=== PATIENT | male | born 1940 | race Native Hawaiian/Other Pacific Islander ===

== ENCOUNTER 2017-05-26 05:37 | Day surgery (SDC) | payer MEDICARE ==
[2017-05-21 12:26] VITALS: BMI 21.3
[2017-05-26 06:35] VITALS: O2SAT 100
[2017-05-26] MEDS ORDERED: cefTRIAXone IV 1 gm in Dextros 50 ML IVPB ONE (07:46)
[2017-05-26] MEDS ORDERED: Lidocaine 2% Jelly (Uro-Jet) ONE (07:46)
[2017-05-26] MEDS ORDERED: Iohexol 240 (50 ml) ONE (07:46)
[2017-05-26] MEDS ORDERED: Sodium Chloride 0.9% 250 ML IV ONE ×2 (08:27→09:48)
[2017-05-26] MEDS ORDERED: Propofol 10 mg/ml Inj (20 ML) ONE (08:30)
[2017-05-26] MEDS ORDERED: Lidocaine Hydrochloride 5 ML INJ ONE (08:31)
[2017-05-26] MEDS ORDERED: ePHEDrine 50 mg/ml Inj ONE (08:45)
[2017-05-26] MEDS ORDERED: HYDROmorphone 0.5 mg/0.5 ml ISec IVP PRN (09:54)
--- NOTE | 2017-05-26 10:05 | PCM.SURG1 ---
Surgeon's Initial Post Op Note - Surgeon's Notes Surgeon: Thierry Barrera Oiler And Greaser: none Type of Anesthesia: General LMA Pre-Operative Diagnosis: Urolithiasis Operative Findings: same. L ureteral calculus. L renal calculi Post-Operative Diagnosis: same Operation Performed: cysto, bilat rtg pyelogram. L uretroscopy, laser lithotripsy. stone basketing, stent insertion. L flexible renoscopy, stone basketing. L ureteral stent insertion Specimen/Specimens Removed: urine. stone - ureter, kidney Estimated Blood Loss: EBL {In ML}: 0 Blood Products Given: N/A Date of Surgery/Procedure: 05/26/17 Time of Surgery/Procedure: 10:05
[2017-05-26 10:50] LABS: MEAN CORPUSCULAR HGB CONC 33.1 g/dL (33.0-37.0); MEAN PLATELET VOLUME 6.9 fL (7.2-11.7); RBC 2.16 Mil/uL (4.40-5.90); RED CELL DISTRIBUTION WIDTH 17.4 % (11.5-14.5)
[2017-05-26 10:51] LABS: MEAN CELL VOLUME 111.6 fL (80.0-94.0)
[2017-05-26 11:17] LABS: CALCIUM 7.1 mg/dl (8.6-10.4); URIC ACID 6.7 mg/dL (3.5-8.5)
[2017-05-26 12:24] VITALS: BP 146/53; PULSE 84; RESP 20; TEMP 97.8
[2017-05-26 12:45] LABS: URINE BACTERIA RARE (<OCC); URINE BILIRUBIN NEGATIVE (NEGATIVE); URINE BLOOD 2+ (NEGATIVE); URINE CLARITY Clear (Clear); URINE COLOR Colorless (YELLOW); URINE GLUCOSE (UA) NORMAL (Normal); URINE LEUKOCYTE ESTERASE 2+ Leu/uL (Negative); URINE NITRATE NEGATIVE (NEGATIVE); URINE PROTEIN NEGATIVE (NEGATIVE); URINE UROBILINOGEN NORMAL mg/dL (0.2-1.0)
--- NOTE | 2017-05-26 14:52 | RAD ---
HISTORY: BILAT UROLITHIASIS COMPARISON: No prior. FINDINGS: BOWEL: Normal. No obstruction. No free air. BONES: Multilevel degenerative changes. OTHER FINDINGS: Position of the double J stent catheter(s): Satisfactory IMPRESSION: Satisfactory position of double-J stent catheters bilaterally.
--- NOTE | 2017-05-26 16:36 | RAD ---
PROCEDURE: Intraoperative Fluoroscopy. HISTORY: BILAT UROLITHIASIS FINDINGS: Fluoroscopic assistance was provided for left ureteroscopy. Please fluoroscopic time (continuous mode) utilized during the procedure: 86.4 seconds. Total exam DLP: MGy per meter: 0.583
--- NOTE | 2017-05-28 06:59 | OP ---
PROCEDURE DATE: 05/26/2017 PREOPERATIVE DIAGNOSES: Bilateral hydronephrosis. Bilateral urolithiasis. POSTOPERATIVE DIAGNOSES: Bilateral hydronephrosis. Bilateral urolithiasis. PROCEDURES: Cystoscopy. Bilateral retrograde pyelogram. Left ureteroscopy. Laser ureteral lithotripsy. Left ureteral stone basketing. Left flexible renoscopy. Left renal stone basketing from middle and lower poles. Insertion of left ureteral stent. OPERATING SURGEON: Dr. Rossy Barrera. PROCEDURE IN DETAIL: The patient was placed in the lithotomy position. Genitalia prepped and draped sterilely. Anesthesia was provided by the anesthesiologist. Perioperative antibiotics were administered. Procedure was performed under video endoscopic control as well as under fluoroscopic control. A 22-Botswanan cystoscope sheath was introduced with obturator. Urine was sent for bacteriologic examination. The urethra and bladder were inspected. The ureteral stents were identified bilaterally. Occlusive tip retrograde ureteral pyelogram was performed adjacent to the right ureteral stent. The stent was noted to be in proper position. There was mild hydronephrosis. Occlusive tip retrograde pyelogram was attempted on the left. However, the contrast flowed back into the bladder and did not fill the ureteral collecting system. The left ureteral stent was grasped with a rigid grasping forceps and brought to the distal end of the cystoscope sheath. A 0.035-inch guidewire was inserted into the left ureteral stent. The guidewire was passed up to the level of kidney. A ureteroscopy was performed with the 7-B[place]wan[place] mini-rigid ureteroscope. A second guidewire was inserted through the ureteroscope into the ureteral orifice. The ureteroscope was advanced in an atraumatic fashion into the ureteral orifice. A stone was encountered in the distal ureter. The stone was approximately 6 mm to 7 mm in size. The stone was smooth and yellow and hard. The stone was located below the pelvic brim. Laser ureteral lithotripsy was performed with a Holmium laser and a 365 micron fiber. The stone was fragmented as well as dusted. All fragments were removed using the 4-wire, flat wire, 2.8 [place] basket. A second guidewire was inserted up to the level of kidney. The renoscopy was performed using the 7-B[place] flexible ureterorenoscope, passed over the working wire. The ureteroscope was passed under video endoscopic control as well as under fluoroscopic control. The kidney was inspected. The renal pelvis was inspected. All calyces were inspected. Iodinated contrast dye had been instilled to demonstrate the renal collecting system anatomy. There were noted to be no stones in the upper calyces. No stones in the pelvis. There was stones located in the lower pole as well as in the mid pole. The stones were basketed using the Nitinol Tipless basket. Stone removal was performed. The stones were approximately 2 mm in size. The ureteroscope was removed under direct vision. A 6-[place] multi-length stent was inserted over the remaining guidewire. Proper stent position was confirmed with fluoroscopy and endoscopy. The guidewire was removed and the stent was left in place. The bladder was reinspected and confirmed the above findings. The bladder was then drained, the cystoscope sheath removed. The rectal examination was performed. Prostate was supple and smooth, approximately 25 g in size. The patient tolerated procedure without complication. Rossy Barrera MD
== END 2017-05-26 12:45 | disposition home or self-care (01) ==
LOC: C.SDS 05:37
PROVIDERS: ATTEND Urology
DX: N13.2 Hydronephrosis with renal and ureteral calculous obstruction (principal)
CPT/HCPCS: 36415; 52356; 74020; 80048; 81001; 82365; 82948; 84132; 84550; 85027; 87086; 88300; C1758; C1769; C2617; J0696; J7040

== ENCOUNTER 2017-06-23 05:52 | Day surgery (SDC) | payer MEDICARE ==
[2017-05-21 12:26] VITALS: BMI 21.3
[2017-06-23] MEDS ORDERED: Lidocaine 2% Jelly (Uro-Jet) ONE (07:12)
[2017-06-23] MEDS ORDERED: Iohexol 240 (50 ml) ONE (07:12)
[2017-06-23] MEDS ORDERED: Lidocaine 2% Inj (20ml) ONE (07:43)
[2017-06-23] MEDS ORDERED: Succinylcholine Chloride 20 mg/ml Syr (5 ml) IV ONE (07:43)
[2017-06-23] MEDS ORDERED: Sodium Chloride 0.9% 1,000 ML IV SCH (07:45)
[2017-06-23] MEDS ORDERED: Lactated Ringer's 1,000 ML IV ONE ×2 (07:50→08:45)
[2017-06-23] MEDS ORDERED: Propofol 10 mg/ml Inj (20 ML) ONE (07:56)
[2017-06-23] MEDS ORDERED: Midazolam 2 MG/2 ML VIAL ONE (07:56)
[2017-06-23] MEDS ORDERED: Rocuronium 10 mg/ml (10 ml) ONE (08:48)
[2017-06-23] MEDS ORDERED: Neostigmine Methylsulfate 3mg/3ml Syringe IV ONE (08:48)
[2017-06-23] MEDS ORDERED: Sodium Chloride 0.9% 1,000 ML IV ONE (09:08)
--- NOTE | 2017-06-23 10:23 | PCM.SURG1 ---
Surgeon's Initial Post Op Note - Surgeon's Notes Surgeon: radha pritchett [employer] Affixer: none Type of Anesthesia: General Endo Pre-Operative Diagnosis: R renal calculus Operative Findings: same Post-Operative Diagnosis: same Operation Performed: cysto, removal of L ureteral stent. R rtg pyelogram. R uretro-renoscopy. R renal stone transposition. R laser guerrero-lithotripsy,. stone baskting. stent insertion R Specimen/Specimens Removed: urine, stone Estimated Blood Loss: EBL {In ML}: 0 Blood Products Given: N/A Post-Op Condition: Good Date of Surgery/Procedure: 06/23/17 Time of Surgery/Procedure: 09:10
[2017-06-23 11:01] VITALS: BP 126/56; PULSE 56; RESP 18; TEMP 98; O2SAT 100
--- NOTE | 2017-06-23 14:15 | RAD ---
HISTORY: UROLITHIASIS COMPARISON: 05/26/2017 FINDINGS: BOWEL: Normal bowel gas pattern. Bilateral ureteral stents grossly unchanged. No masses or abnormal intra-abdominal calcifications are appreciated. BONES: Normal. OTHER FINDINGS: None. IMPRESSION: Bilateral ureteral stents.
--- NOTE | 2017-06-23 14:16 | RAD ---
PROCEDURE: Intraoperative fluoroscopy HISTORY: UROLITHIASIS COMPARISON: Not available TECHNIQUE: Intraoperative fluoroscopy was provided for right ureteroscopy and placement of stent. Total time of fluoroscopy was 94.8 seconds. FINDINGS: Multiple fluoroscopic spot films are submitted. The final film demonstrates a right ureteral stent in place. Films are on file for review. IMPRESSION: Fluoroscopy provided.
--- NOTE | 2017-06-25 08:11 | OP ---
PROCEDURE DATE: 06/23/2017 PREOPERATIVE DIAGNOSIS: Urolithiasis. POSTOPERATIVE DIAGNOSIS: Urolithiasis. PROCEDURES: 1. Cystoscopy. 2. Removal of left ureteral stent. 3. Removal of right ureteral stent. 4. Right retrograde pyelogram. 5. Right ureterorenoscopy. 6. Right renal stone transposition from the lower pole to the upper pole. 7. Right renal laser lithotripsy. 8. Right renal stone basketing. 9. Insertion of right ureteral stent. SURGEON: Rossy Barrera MD. DESCRIPTION OF PROCEDURE: The patient received perioperative antibiotics. Procedure was performed under video endoscopic control as well as under fluoroscopic control. A 22-Botswanan cystoscope sheath was introduced under direct vision. Urethra, prostate, and bladder were inspected. The mortgage loan underwriter film of the abdomen revealed bilateral ureteral stents. There were no radiodense stones identified. The urethra, prostate, and bladder were inspected. The bilateral ureteral stents were identified. The left ureteral stent was grasped with rigid grasping forceps and fully removed, intact. The right ureteral stent was grasped and brought to the level of the urethral meatus. A 0.035-inch guidewire was inserted into the ureteral stent, passed up to the level of the kidney. A 10-Botswanan double-lumen catheter was employed to allow introduction of a second guidewire up to the level of the kidney. Ureterorenoscopy was performed with the 7-Botswanan flexible ureteroscope. Iodinated contrast dye had been instilled through the double lumen ureteral catheter. All the calyces in the kidney were inspected. There was a stone identified in the lower pole. Using the 2.4 Nitinol Tipless stone basket, the stone from the lower pole was engaged. The stone was transposed up to the upper pole where it was released from the basket. Laser renal lithotripsy was performed with a 365 micron fiber. The stone was noted to be yellow and hard. The stone was fragmented into enumerable small fragments. A retail account representative fragment was removed with the basket along with the ureteroscope. A 6-Botswanan multilength stent was inserted over the remaining guidewire. Proper stent position was confirmed with fluoroscopy and endoscopy. The distal suture was left to exit from the stent. The bladder was drained. Cystoscope sheath removed. Rectal examination was performed. There was no abnormal pelvic mass, fixation, or induration. The patient tolerated the procedure without complication. [place] MD Bruce cc: Kane Appiah MD
== END 2017-06-23 12:05 | disposition home or self-care (01) ==
LOC: C.SDS 05:52
PROVIDERS: ATTEND Urology
DX: N20.0 Calculus of kidney (principal)
CPT/HCPCS: 52317; 52332; 74018; 82365; 82948; 87086; 88300; C1758; C1769; C2617; J0696; J7040; J7120